=== PATIENT | female | born 1955 | race Two or more races ===

== ENCOUNTER 2019-01-30 10:29 | Outpatient (CLI) | payer OTHER | END 2019-01-30 10:36 | disposition home or self-care (01) | LOC: RAD 10:29 | DX: M48.061 Spinal stenosis, lumbar region without neurogenic claudication (principal) ==

== ENCOUNTER 2021-04-25 20:19 | Emergency (ER) | payer OTHER ==
[~2021-04-25] VITALS: Ht 160 cm; Wt 75.3 kg
[2021-04-25] MEDS ORDERED: ZOLOFT50 MG PO (20:31)
[2021-04-25] MEDS ORDERED: INTESTINEX680 M1 PO (20:32)
== END 2021-04-25 23:13 | disposition home or self-care (01) ==
LOC: ER 20:19
DX: R19.7 Diarrhea, unspecified (principal)

== ENCOUNTER 2023-03-11 11:55 | Emergency (ER) | payer OTHER ==
[~2023-03-11] VITALS: Ht 160 cm; Wt 83.5 kg
[~2023-03-11 11:55] MED LIST: INTESTINEX680 M1 PO; ZOLOFT50 MG PO
[2023-03-11] MEDS ORDERED: ROSUVASTATIN CA10 MG PO (12:06)
== END 2023-03-11 16:00 | disposition home or self-care (01) ==
LOC: ER 11:55
DX: M62.838 Other muscle spasm (principal)
CPT/HCPCS: 96372; 99282; J1885; J2360